=== PATIENT | male | born 1965 | race Caucasian/White ===

== ENCOUNTER 2017-10-05 08:30 | Day surgery (SDC) | payer OTHER ==
[~2017-10-05] VITALS: Ht 177.8 cm; Wt 95.0 kg
[~2017-10-05 08:30] MED LIST: ALEVE220 M2 PO; HUMIRA40 MG/0.1 SC; METOPROLOL SUCC50 MG PO
== END 2017-10-05 14:30 | disposition home or self-care (01) ==
LOC: CATH 08:30
DX: I25.10 Atherosclerotic heart disease of native coronary artery without angina pectoris (principal); I10 Essential (primary) hypertension
CPT/HCPCS: 93005; C1769; C1887; J1644; J2250; J3010; J7040